=== PATIENT | female | born 1985 | race Caucasian/White ===

== ENCOUNTER 2017-07-04 23:10 | Emergency (ER) | payer SELFPAY ==
[2017-07-05 01:48] LABS: Hematocrit 34 % (35-47); Hemoglobin 10.9 g/dl (12.0-16.0); Mean Corpuscular HGB Conc 32 g/dl (31-36); Mean Corpuscular Hemoglobin 27 pg (27-31); Mean Corpuscular Volume 83 fL (80-97); Mean Platelet Volume 7 um3 (7.4-10.4); Red Blood Count 4.06 10^6/ul (4.0-5.4); Red Cell Distribution Width 16 % (10.5-15); White Blood Count 5.9 10^3/ul (3.5-10.8)
[2017-07-05 01:59] LABS: Albumin 3.5 g/dL (3.2-5.2); Calcium 8.3 mg/dL (8.6-10.3); EGFR African American 182.7 (>60); EGFR Non-African American 142.1 (>60); Globulin 3.2 g/dL (2-4); Potassium 3.5 mmol/L (3.5-5.0); Total Bilirubin 0.2 mg/dL (0.2-1.0); Total Protein 6.7 g/dL (6.4-8.9)
--- NOTE | 2017-07-05 07:09 | ED ---
Benjamin Syed Alfonso, scribed for Jean Pierre Hernandez MD on 07/05/17 at 0057 . Substance Abuse/Use - HPI Summary HPI Summary: LEVEL 5 CAVEAT DUE TO UNRESPONSIVENESS. This patient is a 32 year old F BIBA with police 2209 to [facility] for ETOH intoxication since earlier tonight. Per police she was found intoxicated in a parked motor vehicle and was uncooperative when they arrived. She reported recent stress and depression to police. She denied pain to police. - History Of Current Complaint Chief Complaint: EDSubstanceAbuse Stated Complaint: 2208//ALCOHOL CONSUMPTION Time Seen by Provider: 07/04/17 23:53 Hx Obtained From: Other: - Police Onset/Duration of Drug/ETOH Abuse: Hours - Earlier tonight Ingestion History: Type/Name Of Drug - ETOH Overdose Characteristics: Oral Severity Initially: Moderate Severity Currently: Moderate Character: Other - Unresponsive / Slumber Aggravating Factor(s): Recent Stress Alleviating Factor(s): Nothing - Allergies/Home Medications Allergies/Adverse Reactions: Allergies Allergy/AdvReac Type Severity Reaction Status Date / Time No Known Allergies Allergy Verified 11/15/16 02:23 PMH/Surg Hx/FS Hx/Imm Hx Sensory History: Denies: Hx Deafness Opthamlomology History: Denies: Hx Legally Blind Psychiatric History: Denies: Hx Eating Disorder - Immunization History Date of Tetanus Vaccine: unk Date of Influenza Vaccine: unk Infectious Disease History: Unable to Obtain/Confirm Infectious Disease History: Denies: Traveled Outside the [place] in Last 30 Days - Family History Known Family History: Positive: Unknown - LEVEL 5 CAVEAT DUE TO UNRESPONSIVENESS. - Social History Alcohol Use: intoxicated this date Alcohol Amount: ETOH intoxication this date Substance Use Type: Reports: Other Substance Use Comment - Amount & Last Used: unk, d/t uncooperative with questions Smoking Status (MU): Unknown if Ever Smoked Review of Systems - ROS Summary Review of Systems Summary: LEVEL 5 CAVEAT DUE TO UNRESPONSIVENESS. Positive: Other - Negative pain Neurological: Other - Positive ETOH abuse, recent stress Positive: Depressed All Other Systems Reviewed And Are Negative: No Physical Exam - Summary Physical Exam Summary: LEVEL 5 CAVEAT DUE TO UNRESPONSIVENESS. The patient is well-nourished in no acute distress and in no acute pain. The skin is warm and dry and skin color reflects adequate perfusion. HEENT: The head is normocephalic and atraumatic. The pupils are dilated and reactive. Mouth reveals moist mucous membranes and the throat is without erythema and exudate. The external ears are intact. The tympanic membranes were not visualized. Neck is supple with full range of motion and non-tender. There are no carotid bruits. There is no neck vein distension. Respiratory: Chest is non-tender. Lungs are clear to auscultation and breath sounds are symmetrical and equal. Cardiovascular: Heart is regular rate and rhythm. There is no murmur or rub auscultated. There is no peripheral edema and pulses are symmetrical and equal. Abdomen: The abdomen is soft and non-tender. There are normal bowel sounds heard in all four quadrants and there is no organomegaly palpated. Musculoskeletal: No evidence of trauma to back. There is good capillary refill. There is no peripheral edema or calf tenderness elicited. Psychiatric: ETOH intoxicated. Triage Information Reviewed: Yes Vital Signs On Initial Exam: Initial Vitals Temp Pulse Resp BP Pulse Ox 99.4 F 112 18 100/73 97 07/04/17 23:16 07/04/17 23:16 07/04/17 23:16 07/04/17 23:16 07/04/17 23:16 Vital Signs Reviewed: Yes Diagnostics - Vital Signs Vital Signs Temp Pulse Resp BP Pulse Ox 07/04/17 23:20 99.4 F 112 18 100/73 97 07/04/17 23:16 99.4 F 112 18 100/73 97 - Laboratory Lab Results: Lab Results 07/05/17 07/05/17 Range/Units 01:32 01:32 WBC 5.9 (3.5-10.8) 10^3/ul RBC 4.06 (4.0-5.4) 10^6/ul Hgb 10.9 L (12.0-16.0) g/dl Hct 34 L (35-47) % MCV 83 (80-97) fL MCH 27 (27-31) pg MCHC 32 (31-36) g/dl RDW 16 H (10.5-15) % Plt Count 364 (150-450) 10^3/ul MPV 7 L (7.4-10.4) um3 Neut % (Auto) 39.2 (38-83) % Lymph % (Auto) 52.5 H (25-47) % Butts % (Auto) 6.1 (1-9) % Eos % (Auto) 0.9 (0-6) % Baso % (Auto) 1.3 (0-2) % Absolute Neuts (auto) 2.3 (1.5-7.7) 10^3/ul Absolute Lymphs (auto) 3.1 (1.0-4.8) 10^3/ul Absolute Monos (auto) 0.4 (0-0.8) 10^3/ul Absolute Eos (auto) 0.1 (0-0.6) 10^3/ul Absolute Basos (auto) 0.1 (0-0.2) 10^3/ul Absolute Nucleated RBC 0.01 10^3/ul Nucleated RBC % 0.1 Sodium 138 (133-145) mmol/L Potassium 3.5 (3.5-5.0) mmol/L Chloride 106 (101-111) mmol/L Carbon Dioxide 22 (22-32) mmol/L Anion Gap 10 (2-11) mmol/L BUN 5 L (6-24) mg/dL Creatinine 0.50 L (0.51-0.95) mg/dL Est GFR ( Amer) 182.7 (>60) Est GFR (Non-Af Amer) 142.1 (>60) BUN/Creatinine Ratio 10.0 (8-20) Glucose 93 (70-100) mg/dL Calcium 8.3 L (8.6-10.3) mg/dL Total Bilirubin 0.20 (0.2-1.0) mg/dL AST 18 (13-39) U/L ALT 13 (7-52) U/L Alkaline Phosphatase 40 (34-104) U/L Total Protein 6.7 (6.4-8.9) g/dL Albumin 3.5 (3.2-5.2) g/dL Globulin 3.2 (2-4) g/dL Albumin/Globulin Ratio 1.1 (1-3) Serum Alcohol 270 H (<10) mg/dL Result Diagrams: 07/05/17 01:32 07/05/17 01:32 Lab Statement: Any lab studies that have been ordered have been reviewed, and results considered in the medical decision making process. Course/Dx - Course Assessment/Plan: LEVEL 5 CAVEAT DUE TO UNRESPONSIVENESS. This patient is a 32 year old F BIBA with police 2209 to [facility] for [facility] intoxication since earlier tonight. Per police she was found intoxicated in a parked motor vehicle and was uncooperative when they arrived. She reported recent stress and depression to police. She denied pain to police. Patient will be discharged with follow up from PCP. Pt is agreeable with this plan. - Diagnoses Differential Diagnosis/HQI/PQRI: Positive: Alcohol Abuse Provider Diagnoses: Alcohol intoxication Discharge - Discharge Plan Condition: Stable Disposition: HOME Patient Education Materials: Alcohol Intoxication (ED) Referrals: [facility] PHYSICIAN REFERRAL [Outside] - 3 Days The documentation as recorded by the Benjamin rubio Alfonso accurately reflects the service I personally performed and the decisions made by me, Jean Pierre Hernandez MD.
[2017-07-05 09:09] VITALS: BP 117/67
== END 2017-07-05 09:09 | disposition home or self-care (01) ==
LOC: ED 23:10
DX: F10.129 Alcohol abuse with intoxication, unspecified (principal); Y90.8 Blood alcohol level of 240 mg/100 ml or more
CPT/HCPCS: 36415; 80053; 80320; 85025; 99284; G0480

== ENCOUNTER 2020-03-05 18:13 | Inpatient (IN) | payer OTHER ==
[2020-03-05] MEDS ORDERED: Dinoprostone* 10 MG VAG.SUPP VAGINAL ONE (19:22)
[2020-03-05] MEDS ORDERED: Lactated Ringers 1000 ML Bag* 1,000 ML IV ONE (19:22)
[2020-03-05] MEDS ORDERED: Buffered Lidocaine 1% SYRIN* 1 ML/SYRINGE INTRADERM ONE (19:22)
--- NOTE | 2020-03-05 19:42 | HP ---
General Information - Reason for Visit Patient is 42+0 weeks gestation, here for induction of labor. - General Information Maternal Age: 35 Grav: 1 Para: 0 SAB: 0 IEA: 0 Estimated Due Date: 02/20/20 Determined By: LMP Maternal Blood Type and Rh: A Positive - Results this Serology/RPR Result: Non-Reactive Rubella Result: Immune HBsAg Result: Negative HIV Result: Negative GBS Culture Result: Negative Past Medical History Delivery History: See Records Delivery History Comment: No previous pregnancies Pertinent Past Medical History: See Records Past Medical History Comment: Hx LEEP 2018 Hx previous abnormal Pap Pertinent Past Surgical History: None Pertinent Family History: See Records Family History Comment: Unknown hx, patient adopted - Antepartal Records Antepartal Records: Reviewed, Complicated by: - Mild anemia, resolved. Review of Systems Constitutional: Comfortable CV Complaint: No Respiratory: Shortness of Breath: No Gastrointestinal: No Nausea/Vomiting, Normal Bowel Movement Genitourinary: No Dysuria, No Bleeding, No Leaking Fluid Musculoskeletal: Contractions Neurological: No Headache, No Visual Changes Movement: Normal Exam Allergies/Adverse Reactions: Allergies No Known Allergies Allergy (Verified 11/15/16 02:23) BP 108/75 T 99.4 HR 98 RR 20 O2 100 - Measurements Height: 5 ft 1 in Weight: 126 lb Weight in lbs: 126.200300 Body Mass Index (BMI): 23.8 Pre- Weight: 100 lb Weight Gained This : 26 lbs and 0 ozs - Exam Breast: Breast Exam Deferred CVA: No CVA Tenderness Extremities: No Edema Heart: Normal Rhythm/Heart Sounds HEENT: No Significant Findings Lungs: Clear Bilaterally Rectal: Rectal Exam Deferred Reflexes: DTR 2+, - - no clonus Thyroid: - - WNL @ entry to care - Abdominal Exam Abdomen Exam: Non-Tender, Fundal Height Consistent with Dates - Ultrasound/Biophysical Profile Ultrasound Status: Not Done Targeted Exam Findings Estimated Weight: 8.5-9lb Cervical Exam: 1cm Effacement: 50% Station: -1 Presenting Part: Vertex Membrane Status: Intact Bleeding/Discharge: None EFM Findings - External Monitor Findings Baseline Heart Rate: 150 External Monitor Findings: Accelerations Present, No Pattern of Variable or Late Decelerations, Variability Moderate Contractions: Regular, Mild, < 45 Seconds Contraction Frequency: q 8-10 min Assessment/Plan - Assessment IUP @ 42+0 weeks gestation for induction of labor. Intact membrane. No evidence acidemia - Obstetrical Risk Factors Obstetrical Risk Factors: Post-Dates - Plan Plan: Induction, Cervical Ripening, Admit - Anticipate Vaginal Delivery Plan Comment: Admit to L&D. PARQ discussion use of cervidil for ripening, induction; patient in agreement. Prefers unmedicated delivery, will ask about pain management if desires. Agrees to PRN hydroxazine if needed for sleep. Anticipate progression to labor and SVB. - Date/Time of Admission Date of Admission: 03/05/20 Time of Admission: 19:24
[2020-03-05] MEDS ORDERED: Lactated Ringers 1000 ML Bag* 1,000 ML IV SCH (20:00)
[2020-03-05] MEDS ORDERED: hydrOXYzine HCL TAB* 50 MG PO ONE (20:10)
[2020-03-06 07:28] LABS: Urine Benzodiazepine Screen None Detected (None Detect); Urine Opiates Screen None Detected (None Detect)
--- NOTE | 2020-03-06 09:16 | PN ---
Progress Note - Progress Note Date of Service: 03/06/20 Note: S: Assuming care of a [facility] patient, Waldo a 35 year-old G1 at 42-1/7 s/p Cervidil x 1 for postdates ripening/induction. She reports that she was able to rest overnight. Reports some rare stronger UCs and occasional menstrual like cramping. Strong preference for minimal intervention in labor process. Hoping for an unmedicated labor experience. Lengthy plan reviewed. O: BP 113/60 HR 89 T 97 FHT 125bpm. initially minimal-moderate variability with two subtle decels down to 110bpm x 1.5 and 3 minutes respectively. Recovered. S/P SVE Moderate variability with accels noted. No further decels. UCs uterine irritability pattern VE 1.5cm/50% and soft/vtx -1 A: IUP at 42-1/7 here for postdates ripening/induction Cat II FHT - bears close monitoring. Doubt metabolic acidemia at this time P: Recommend IV fluids. Discussed that at this time with this tracing I recommend a trial of IV pitocin as the safest next step in induction process due to short half life and ability to titrate closely and turn off if fetus doesn't tolerate regular uterine contractions. As above pt and FOB really hoping to avoid pitocin but they do verbalize understanding of concerns with present tracing. At this time they consent to IV placement and fluid bolus. Will continue to monitor closely. Dr. Molina in house and aware of pt presence and condition
[2020-03-06 10:17] LABS: ABS Basophils 0.1 10^3/ul (0-0.2); ABS Lymphocytes 1.7 10^3/ul (1.0-4.8); ABS Monocytes 0.6 10^3/ul (0-0.8); ABS Neutrophils 6.7 10^3/ul (1.5-7.7); Eosinophil % 0.4 %; Hematocrit 38 % (35-47); Lymphocyte % 18.2 %; Mean Corpuscular HGB Conc 34 g/dL (31-36); Mean Corpuscular Hemoglobin 30 pg (27-31); Mean Corpuscular Volume 89 fL (80-97); Mean Platelet Volume 8.4 fL (7.4-10.4); Platelet Count 166 10^3/uL (150-450); Red Blood Count 4.29 10^6 /uL (3.70-4.87); Red Cell Distribution Width 16 % (10-15); White Blood Count 9.1 10^3/uL (3.5-10.8)
--- NOTE | 2020-03-06 13:30 | PN ---
Progress Note - Progress Note Date of Service: 03/06/20 Note: S: Discussed options for ongoing induction at this time. Reviewed IV pitocin vs. Cook Catheter vs. Both together. Pros/cons, risks/benefits reviewed and all questions answered. At this time Waldo and her partner agree to a trial of the Cook Catheter only. O: BP 111/66 HR 90 T 97.6 FHT 125bpm. Moderate variability. +Accels. Rare variable type decels and rare subtle decels, good recovery to baseline UCs q 2-4 min, mild VE 2cm/50% and soft/vtx -1. Cook catheter placed without difficulty. Filled to 50mL uterus and 50mL vagina. Pt tolerated well A: IUP at 42-1/7 here for postdates induction Cat II FHT - doubt metabolic acidemia P: Will leave Cook Catheter in place for up to 12 hours. Will remove sooner PRN spontaneous expulsion with onset active labor or other concerns. Continue close monitoring of maternal/ status
--- NOTE | 2020-03-07 01:53 | PN ---
Progress Note - Progress Note Date of Service: 03/07/20 Note: S: Pt resting comfortably in bed. Reports that waves feel stronger then before. Using hypnobabies to help with psychoprophylaxis. FOB remains at bedside supportive. O: BP 97/59 HR 92 RR 16 T 97.7 FHT 130bpm. Moderate variability. +Accels. Isolated variable decel down to 95bpm , rapid return to baseline UCs q 4, mild to moderate Cook Catheter: 50mL removed from V port, 50mL removed from U port, Cook catheter successfully removed. Pt tolerated well VE 3-4cm/100%/vtx -2, BBOW A: IUP at 42-2/7 in latent labor No evidence of metabolic acidemia P: Discussed next steps including discussion of rest vs. amniotomy vs. IV pitocin. Pt with strong preference to rest for now and re-evaluate in the morning, sooner as needed onset active labor. Will likely be interested in amniotomy over IV pitocin as she requested that IV be removed despite being counseled to keep it in place. Using shared decision making pt verbalized strong preference for removal but agreed to have it replaced as needed resuscitation or ongoing induction. It was removed 03/06/2020 at 1709
--- NOTE | 2020-03-07 06:47 | PN ---
Progress Note - Progress Note Date of Service: 03/07/20 Note: Quick Note: Pt rested well overnight. Will shower and eat breakfast and aware that Jocelin Powers CNM is following and will check her and work with her re: ongoing induction. Report to MARIA VICTORIA who will assume care at 0800.
--- NOTE | 2020-03-07 09:05 | PN ---
Progress Note - Progress Note Date of Service: 03/07/20 Note: S: Per RN, SROM at 0655. Pt resting comfortably in bed. Reports that labor waves feel less strong than before. Using hypnobabies to help with psychoprophylaxis. FOB remains at bedside supportive. O: VS: BP 109/68 HR 95 RR 16 T 97.8 FHT: 130bpm. Moderate variability. +Accels. Isolated variable decel down to 95bpm, rapid return to baseline UCs: q 6, mild to moderate VE: deferred. Last check by MM at 0130. 3-4cm/100%/vtx -2. Continues to leak clear fluid. A: IUP at 42-2/7 in latent labor No evidence of metabolic acidemia Irregular contractions P: Discussed next steps including discussion of expectant management vs. pitocin. Pt with strong preference to ambulate, bath and re-evaluate need for pitocin at noon. Anticipate progression to active labor
--- NOTE | 2020-03-07 11:13 | PN ---
Progress Note - Progress Note Date of Service: 03/07/20 Note: Notified by RN of meconium stained fluid PARQ discussion with pt about augmenting labor with Pitocin. Pt and in agreement with plan. Contractions 4-6 minutes, uterus palpates mild - good resting tone Start low-dose pitocin Monitoring per protocol
[2020-03-07] MEDS ORDERED: Buffered Lidocaine 1% SYRIN* 1 ML/SYRINGE INTRADERM ONE (11:26)
[2020-03-07] MEDS ORDERED: Lactated Ringers 1000 ML Bag* 1,000 ML IV ONE ×2 (11:26→23:30)
[2020-03-07] MEDS: Lactated Ringers 1000 ML Bag* 1,000 ML IV SCH (11:51)
[2020-03-07] MEDS ORDERED: Oxytocin in LR* 20 UNITS/1,000 ML BAG IVPB SCH (12:00)
--- NOTE | 2020-03-07 15:50 | PN ---
Progress Note - Progress Note Date of Service: 03/07/20 Note: S: Pt resting comfortably in bed. Using hypnobabies to help with psychoprophylaxis. Sleeping vs in hypnotic state? Pt calm. FOB remains at bedside supportive. O: BP 123/90 HR 88 RR 16 T 98.5 FHT 130bpm. Moderate variability. +Accels. No decels. UCs q 1-2, mild to moderate, good resting tone VE deferred, mec Pitocin@12 A: IUP at 42-2/7 in latent labor No evidence of metabolic acidemia Regular contractions P: Pt appears to be comfortable. Prefers minimal disturbance per plan. Adequate contraction pattern Anticipate progression to active labor.
--- NOTE | 2020-03-07 16:37 | PN ---
Progress Note - Progress Note Date of Service: 03/07/20 Note: Tachysystole noted on FHT Reduce Pitocin by half Category I tracing Continue to monitor closely
--- NOTE | 2020-03-07 19:03 | PN ---
Progress Note - Progress Note Date of Service: 03/07/20 Note: S: Pt tearful and uncomfortable with contractions Using hypnobabies to help with psychoprophylaxis FOB remains at bedside supportive O: Temp 97.5 FHT 125bpm. Moderate variability. +Accels. No decels. UCs q 2-4, moderate, good resting tone VE: 4.5/100/-1, bulging bag, AROM, mec stained fluid Pitocin@6, then discontinued A: IUP at 42-2/7 in early labor No evidence of metabolic acidemia Regular contractions P: Discussed plan moving forward. Plan to d/c Pitocin so patient can labor in the tub (unable to monitor continuously in water) Plan to restart Pitocin if contractions space Still prefers minimal disturbance per plan. Anticipate progression to active labor.
--- NOTE | 2020-03-07 21:32 | PN ---
Progress Note - Progress Note Date of Service: 03/07/20 Note: S: Pt tearful and uncomfortable with contractions - per pt , becoming more painful Using hypnobabies to help with psychoprophylaxis FOB remains at bedside supportive O: BP 116/75, 16, HR 97, temp 98.7 FHT 125bpm. Moderate variability. +Accels. No decels. UCs q 5-6, moderate, good resting tone VE: deferred Pitocin off A: IUP at 42-2/7 in early labor No evidence of metabolic acidemia Contractions spaced with pitocin off P: Discussed plan moving forward. Will need to restart Pitocin if contractions continue to space VE at 0030 to reassess Still prefers minimal disturbance per plan. Anticipate progression to active labor.
--- NOTE | 2020-03-07 22:35 | PN ---
Progress Note - Progress Note Date of Service: 03/07/20 Note: Called by RN to bedside Pt requesting VE and epidural VE: /-1 Labs: platelets 166 Anesthesia notified
[2020-03-07] MEDS ORDERED: OBEPIDURAL* 250 ML EPIDURAL ONE (22:46)
[2020-03-07] MEDS ORDERED: Famotidine TAB* 20 MG PO PRN (23:30)
[2020-03-07] MEDS ORDERED: Sodium Citrate/Citric Acid* 15 ML UDC PO PRN (23:30)
[2020-03-07] MEDS ORDERED: Ondansetron INJ* 2 MG/ML VIAL IV PRN (23:32)
[2020-03-07] MEDS ORDERED: Lactated Ringers 1000 ML Bag* 1,000 ML IV SCH (23:45)
[2020-03-08] MEDS: Phenylephrine 40 MCG/ML SYRINGE IV PUSH PRN ×3 (00:02→09:44)
[2020-03-08] MEDS: EPHEDrine (Pressors)* 50 MG/ML VIAL IV PUSH PRN ×2 (00:15→09:58)
[2020-03-08] MEDS: Lactated Ringers 1000 ML Bag* 1,000 ML IV SCH ×2 (01:49→13:39)
--- NOTE | 2020-03-08 03:32 | PN ---
Progress Note - Progress Note Date of Service: 03/08/20 Note: S: Per RN, pt with hypotension following epidural - treated Pt denies feeling dizzy, nauseated Comfortable with CEI infusing FOB remains at bedside, sleeping O: BP 107/48, 16, HR 84, temp 99 FHT 150bpm. Moderate variability. +Accels. Occasional variable decel UCs q 4-6, moderate, good resting tone VE: deferred Pitocin@8mU A: IUP at 42-3/7 in labor VSS No evidence of metabolic acidemia P: Continue to titrate pitocin as tolerated by mom/baby until adequate contraction pattern achieved Regular position changes Anticipate progression to
--- NOTE | 2020-03-08 06:12 | PN ---
Progress Note - Progress Note Date of Service: 03/08/20 Note: S: Pt comfortable with CEI infusing Updated by RN of FHR changes (see below) Aware of contractions FOB remains at bedside O: Temp 98.1 FHT 150bpm. Period of late decelerations - resolved with O2 and position change. Prolonged deceleration while pt on left-side, per RN flipped pt to right -side with return to baseline, moderate variability, and +accelerations. UCs q 4, mild-moderate, good resting tone VE: 5-6/100/-1 Pitocin@6mU A: IUP at 42-3/7 in labor, afebrile Doubt metabolic acidemia Close monitoring of FHT P: Continue to titrate pitocin as tolerated by mom/baby until adequate contraction pattern achieved Discussed plan moving forward. The following conditions would necessitate a : intolerance to Pitocin/labor; cervix unchanged in response to adequate contractions. Pt and in agreement with plan. Report will be given to Purnima Vila CNM who will assume care at 0800
--- NOTE | 2020-03-08 09:21 | PN ---
Progress Note - Progress Note Date of Service: 03/08/20 Note: S: Patient reports feeling more pressure in rectum and feeling ctx on her right side. O: VE deferred UCs q 2-3 min FHT 135, +accels, mod variability, rare variable decels VSS, afebrile Pit @ 14 A: IUP @ 42+3 weeks gestation for induction of labor, in active labor with pitocin augmentation Doubt acidemia Membranes ruptured, meconium present P: Encourage continued position changes, rest and will consider cervical recheck approx 1-2 hours or with more pressure.
--- NOTE | 2020-03-08 11:45 | PN ---
Progress Note - Progress Note Date of Service: 03/08/20 Note: S: Patient comfortable. VE: 6-7cm/100/vtx 0 FHT 130, +accels, mod diego, rare variable decels Pit @ 14 VSS, afebrile UCs q 2-4 A: IUP @ 42+3 weeks gestation for induction Doubt acidemia Membranes ruptured, meconium in fluid P: PARQ discussion use of internal catheter for monitoring. We also discussed could be reasonable to opt for CS while stable given slow progression of cervical change. Prefers to try catheter, increase pitocin as indicated and recheck cervix approx 1-2 hours after adequate ctx.
--- NOTE | 2020-03-08 13:58 | PN ---
Progress Note - Progress Note Date of Service: 03/08/20 Note: S: Fairly comfortable but occ feeling more low right sided pain with contractions. Will keep pushing bolus button and try side lying positions. O: VE: 7-8cm/100/vtx 0 FHT 125, +accels, mod diego, occ variable decels Pit down to 10 after decels UCs q 2-3 IUPC replaced A: IUP @ 42+3 weeks gestation for induction Doubt acidemia Membranes ruptured P: Continue titration per tolerance. Encourage position changes.
[2020-03-09] MEDS ORDERED: Glycerin ADULT SUPP PR PRN (01:31)
[2020-03-09] MEDS ORDERED: Witch Hazel PAD* JAR TOPICAL PRN (01:31)
[2020-03-09] MEDS ORDERED: Dibucaine 1% 28.35 GM TUBE PR PRN (01:31)
--- NOTE | 2020-03-09 01:46 | PROCNOTE ---
[facility] OB: Delivery Note - Delivery A Date of : 03/09/20 Time of : 00:25 [place] Sex: Male - "Alexandru Good" Score 1 Minute: 7 Score 5 Minutes: 9 Gestational Age in Weeks and Days at Delivery: 42 Weeks and 4 Days Delivery Method: Spontaneous Vaginal Labor: Induced Did Patient attempt ?: N/A, No Previous Amniotic Fluid: Meconium Estimated Blood Loss: 400 Anesthesia/Analgesia: CEI for Labor Delivered By: Cole Vila - Nursery Level of Nursery: Regular/Bedside - Perineum Perineal Injury: Periurethral Laceration - with right labial, 1st Degree Perineal Injury Comment: 3-0 perineal, 4-0 labial Perineal Repair: By Delivering Practioner - Events Delivery Events of Note: Pitocin During Labor, Post- Bleeding - Meds Given - Additional Delivery Notes Additional Delivery Notes: Admitted for post-dates induction. Cervical ripening with cervidil, Cook's, augmentation with pitocin led to active labor. Length of active labor 29'56", pushed 2 hours 55 min. Baby born OA to EDUAR with nuchal cord unwrapped after delivery. To maternal abdomen, initially stunned but HR >110. Spontaneous respirations with stimulation, bulb suction for meconium secretions. Cord doubly clamped and cut by FOB once pulsations ceased. Placenta delivered with gentle cord traction. Fundus firm with pitocin infusing. First degree perineal laceration and right labial/periurethral lacerations repaired. Baby at breast to initiate .
[2020-03-09] MEDS ORDERED: Oxytocin in LR* 20 UNITS/1,000 ML BAG IVPB SCH (02:00)
[2020-03-09] MEDS: Ibuprofen TAB* 600 MG PO PRN ×4 (03:18→23:27)
[2020-03-09] MEDS ORDERED: Lidocaine 1% INJ* 10 MG/ML 30 ML SDV ONE (05:12)
[2020-03-09] MEDS: Docusate CAP* 100 MG PO SCH ×3 (09:44→23:28)
[2020-03-09] MEDS: OBEPIDURAL* 250 ML EPIDURAL SCH ×2 (10:17→10:27)
--- NOTE | 2020-03-09 12:39 | PTEDU ---
Patient Name: ELIZABETH LINDSAY NEFTALI ELIZABETH selected video: Follow Me Mum: The Jim to Successful to view on 0 at 12:37:57 PM [id number]
[2020-03-10 06:03] LABS: ABS Basophils 0.1 10^3/ul (0-0.2); ABS Eosinophils 0.1 10^3/ul (0-0.6); ABS Lymphocytes 2.8 10^3/ul (1.0-4.8); ABS Monocytes 0.9 10^3/ul (0-0.8); ABS Neutrophils 9.9 10^3/ul (1.5-7.7); Eosinophil % 0.8 %; Hematocrit 27 % (35-47); Hemoglobin 9.5 g/dL (12.0-16.0); Lymphocyte % 20.6 %; Mean Corpuscular HGB Conc 35 g/dL (31-36); Mean Corpuscular Hemoglobin 31 pg (27-31); Mean Corpuscular Volume 89 fL (80-97); Mean Platelet Volume 7.9 fL (7.4-10.4); Platelet Count 174 10^3/uL (150-450); Red Blood Count 3.07 10^6 /uL (3.70-4.87); Red Cell Distribution Width 15 % (10-15); White Blood Count 13.8 10^3/uL (3.5-10.8)
[2020-03-10] MEDS ORDERED: Ferrous Gluconate TAB* 324 MG TAB PO SCH (09:00)
[2020-03-10] MEDS: Ibuprofen TAB* 600 MG PO PRN ×2 (09:16→16:11)
[2020-03-10] MEDS: Docusate CAP* 100 MG PO SCH ×2 (09:16→16:11)
[2020-03-10] MEDS: Acetaminophen TAB* 325 MG PO PRN ×2 (09:17→16:11)
[2020-03-10 10:12] VITALS: BP 101/68
== END 2020-03-10 16:29 | disposition home or self-care (01) | DRG 806 ==
LOC: MCHOBOUT 18:13 → MCHOB 19:24
PROVIDERS: ADMIT Midwife; ATTEND Midwife
PROC: 10E0XZZ Delivery of Products of Conception, External Approach (ICD-10-PCS; principal; 2020-03-09)
PROC: 3E0P7VZ Introduction of Hormone into Female Reproductive, Via Natural or Artificial Opening (ICD-10-PCS; 2020-03-09)
PROC: 3E033VJ Introduction of Other Hormone into Peripheral Vein, Percutaneous Approach (ICD-10-PCS; 2020-03-09)
PROC: 0HQ9XZZ Repair Perineum Skin, External Approach (ICD-10-PCS; 2020-03-09)
PROC: 0UQMXZZ Repair Vulva, External Approach (ICD-10-PCS; 2020-03-09)
PROC: 10907ZC Drainage of Amniotic Fluid, Therapeutic from Products of Conception, Via Natural or Artificial Opening (ICD-10-PCS; 2020-03-09)
DX: O48.0 Post-term pregnancy (principal); O72.1 Other immediate postpartum hemorrhage; Z37.0 Single live birth; Z3A.42 42 weeks gestation of pregnancy; O77.0 Labor and delivery complicated by meconium in amniotic fluid; O71.82 Other specified trauma to perineum and vulva; O70.0 First degree perineal laceration during delivery; O67.8 Other intrapartum hemorrhage; O90.81 Anemia of the puerperium; D64.9 Anemia, unspecified
CPT/HCPCS: 36415; 59200; 80307; 85025; 86850; 86900; 86901; A9270-GY; G0480